=== PATIENT | male | born 1980 | race Caucasian/White ===

== ENCOUNTER 2018-12-28 10:00 | Emergency (ER) | payer BC, OTHER, SELFPAY ==
[2018-12-28] MEDS ORDERED: Sodium Chloride 0.9% 1,000 ML ONE (10:22)
[2018-12-28] MEDS ORDERED: Adacel (T-DAP) 0.5 ML SYRINGE ONE (10:23)
[2018-12-28 10:40] LABS: #Basophils 0.1 thou/uL (0.0-0.2); #Eosinphils 0.2 thou/uL (0.0-0.7); #Lymphocytes 1.9 thou/uL (1.20-3.40); #Monocytes 0.6 thou/uL (0.11-0.59); #Neutrophils 2.5 thou/uL (1.40-6.50); %Basophils 1.8 % (0.0-1.0); %Eosinophils 3.9 % (0.0-10.0); %Monocytes 10.7 % (0.0-10.0); %Neutrophils 46.7 % (42.0-75.0); Hemoglobin 15.6 g/dL (14.0-18.0); Mean Corpuscular HGB CONC 33.9 g/dL (32.0-36.0); Mean Corpuscular Volume 88.6 fL (78.0-98.0); Mean Platelet Volume 8.4 fL (7.4-10.4); Platelet Count 229 thou/uL (130-400); RBC Distribution Width 12.1 % (11.5-14.5); Red Blood Cell (RBC) Count 5.21 mill/uL (4.70-6.10); White Blood Cell (WBC) Count 5.2 thou/uL (4.8-10.8)
[2018-12-28] MEDS ORDERED: Crotalidae Polyvalent Antivenin 1 GM VIAL ONE ×2 (10:41→10:47)
[2018-12-28 10:43] LABS: ALT (SGPT) 42 U/L (8-55); AST (SGOT) 22 U/L (5-34); Albumin 4.5 g/dL (3.5-5.0); Alkaline Phosphatase 82 U/L (40-150); Anion Gap 15 mmol/L (10-20); BUN (Urea Nitrogen) 18 mg/dL (8.9-20.6); Bilirubin, Total 0.6 mg/dL (0.2-1.2); CK (CPK) 117 U/L (30-200); Calc. Creatinine Clearance 0 mL/min (70-130); Calcium 9.8 mg/dL (7.8-10.44); Carbon Dioxide 24 mmol/L (22-29); Chloride 104 mmol/L (98-107); Estimated GFR-MDRD 81; Globulin 2.8 g/dL (2.4-3.5); Glucose 105 mg/dL (70-105); Potassium 4.2 mmol/L (3.5-5.1); Protein, Total 7.3 g/dL (6.0-8.3); Sodium 139 mmol/L (136-145)
[2018-12-28 10:56] LABS: INR-International Normal Ratio 1.1; PTT 33.4 SEC (22.9-36.1); Prothrombin Time 13.9 SEC (12.0-14.7)
[2018-12-28] MEDS ORDERED: Sodium Chloride 0.9% 250 ML 250 ML ONE (11:02)
[2018-12-28] MEDS ORDERED: diphenhydrAMINE 50 MG/ML VIAL ONE (11:07)
[2018-12-28] MEDS ORDERED: Ondansetron PF 4 MG/2 ML Vial ONE (11:07)
== END 2018-12-28 11:36 | disposition short-term general hospital (02) ==
LOC: NAV ERS 10:00
DX: T63.061A Toxic effect of venom of other North and South American snake, accidental (unintentional), initial encounter (principal); F17.210 Nicotine dependence, cigarettes, uncomplicated
CPT/HCPCS: 36415; 80053; 82550; 85025; 85384; 85610; 85730; 86850; 86900; 86901; 90471; 90715; 93005; 94760; 96374; 96375; J0840; J1200; J2405; J7050

== ENCOUNTER 2019-07-09 18:18 | Emergency (ER) | payer OTHER ==
[2019-07-09] MEDS ORDERED: Lidocaine 1% (PF) 30 ML VIAL ONE (18:24)
--- NOTE | 2019-07-09 18:54 | RAD ---
XR Foot Lt 3 View STANDARD HISTORY: Injury, left foot pain FINDINGS: No fracture or dislocation is identified. Soft tissue laceration is noted involving the soft tissues of the medial aspect of the left great toe at the level of the MTP joint. Tiny radiopaque densities may represent radiopaque foreign bodies.
[2019-07-09] MEDS ORDERED: Bacitracin 1 PK ONE (19:31)
[2019-07-09] MEDS ORDERED: HYDROcodone/Acetaminophen 5/325 mg Tablet ONE (20:18)
== END 2019-07-09 20:20 | disposition home or self-care (01) ==
LOC: NAV ERS 18:18
DX: S91.112A Laceration without foreign body of left great toe without damage to nail, initial encounter (principal); I10 Essential (primary) hypertension; F17.210 Nicotine dependence, cigarettes, uncomplicated; W29.3XXA Contact with powered garden and outdoor hand tools and machinery, initial encounter; Y92.009 Unspecified place in unspecified non-institutional (private) residence as the place of occurrence of the external cause
CPT/HCPCS: 12002; J2001